=== PATIENT | female | born 1945 | race African-American/Black ===

== ENCOUNTER 2018-05-11 12:24 | Emergency (ER) | payer BC, OTHER ==
[~2018-05-11] VITALS: Ht 165.1 cm; Wt 91.0 kg
[~2018-05-11 12:24] MED LIST: ASPI-1158 PO; CLOP75TA16 PO
[2018-05-11] MEDS ORDERED: DEXAMETHASONE 10 MG/ML VIAL IV ONE (14:00)
[2018-05-11] MEDS ORDERED: DIPHENHYDRAMINE 50MG/ML VIAL IV ONE (14:00)
[2018-05-11] MEDS ORDERED: FAMOTIDINE 20MG/2ML VIAL IV ONE (14:00)
[2018-05-11 14:36] LABS: BASOPHILS % 0.8 % (0.0-2.0); HEMATOCRIT. 31.6 % (36.0-48.0); LYMPHOCYTES % 23.1 % (20.0-50.0); MEAN CORPUSCULAR HEMOGLOBIN 28.2 pg (28.0-32.0); MEAN CORPUSCULAR VOLUME 88.8 fL (81.0-99.0); MEAN PLATELET VOLUME 8.7 fl (7.4-10.4); MONOCYTES % 10.1 % (2.0-8.0); PLATELET 142 x1000/uL (130-400); RED BLOOD CELL COUNT 3.55 mill/uL (4.2-5.4); RED CELL DISTRIBUTION WIDTH 14.3 % (11.6-14.6)
[2018-05-11 14:39] LABS: CHLORIDE 110 mEq/L (98-107); INR 1.1; PROTHROMBIN TIME 10.7 sec (9.1-11.1)
[2018-05-11 15:32] LABS: CLARITY URINE CLEAR (CLEAR); COLOR URINE YELLOW (YELLOW); KETONES URINE NEGATIVE (NEGATIVE); LEUKOCYTE ESTERASE URINE 3+ (NEGATIVE); NITRITE URINE NEGATIVE (NEGATIVE); OCCULT BLOOD URINE NEGATIVE (NEGATIVE); PROTEIN URINE NEGATIVE (NEGATIVE); SPECIFIC GRAVITY URINE 1.009 (1.005-1.030); UROBILINOGEN URINE 0.2 E.U./dL (0.2-1.0)
[2018-05-11 17:26] VITALS: BP 122/76
== END 2018-05-11 17:55 | disposition home or self-care (01) ==
LOC: ER 12:24
DX: T78.40XA Allergy, unspecified, initial encounter (principal); X58.XXXA Exposure to other specified factors, initial encounter; I11.9 Hypertensive heart disease without heart failure; Z88.0 Allergy status to penicillin; Z79.82 Long term (current) use of aspirin; Z86.73 Personal history of transient ischemic attack (TIA), and cerebral infarction without residual deficits; Z86.718 Personal history of other venous thrombosis and embolism
CPT/HCPCS: 36415; 70450; 71045; 80053; 81003; 84484; 85025; 85610; 93005; 96374; 96375; 99284; J1100; J1200; J3490